=== PATIENT | female | born 1945 | race Caucasian/White ===

== ENCOUNTER 2021-02-28 07:14 | Inpatient (IN) | payer MEDICARE, BC ==
[~2021-02-28] VITALS: Ht 160 cm; Wt 96.1 kg
--- NOTE | ~2021-02-28 | PROC ---
[address] [address] PROCEDURE REPORT Name: HARIKA WINTER Room: [address] IN M.R.#: [id number] Admission: 02/28/21 Attend Phys: Clary Harmon Discharge: Date of : 43 Report #: [id number] THIS REPORT FOR: cc: Baldev Doshi MD, Anthony MD [facility],Medical Records Staff ~ For GI report, please see the Provation report in Perceptive 7 content. By: 0653Medical Records Staff ECTOR /SHANNA
[~2021-02-28 07:14] MED LIST: ALPHAGAN P10 ML OP; ALTACE10 MG PO; BENADRYL25 MG PO; BENTYL 20 MG TA20 M1 PO; BENTYL20 MG PO; CELEXA 10 MG TA10 M1 PO; CELEXA20 MG PO; CLONAZEPAM 0.50.5 M1 PO; COUMADIN 2 MG TA2 M1 PO; COUMADIN 4 MG TA4 M1 PO; EPIPEN JR0.15 MG/01 IM; ESTRACE2 M3 PO; ESTRADIOL 1 MG T1 M1 PO; FENOFIBRATE160 MG PO; KLOR-CON 1010 MEQ PO; LASIX 20 MG TAB20 MG PO; METOPROLOL SUCC50 MG PO; PERPHEN-AMITRI1 EAC3 PO; PREDNISONE 10 M10 MG PO; RAMIPRIL10 MG PO; SIMBRINZA 1%-0.28 ML OP; SYMBICORT80 MCG/4.1 INH; VENTOLIN HFA 1818 GM INH; WELLBUTRIN 100100 MG PO; ZOCOR20 MG PO; [UNRECOGNIZED DRUG - OTHER]
[2021-02-28 07:15] VITALS: BP 114/54
[2021-02-28 08:01] LABS: ABSOLUTE LYMPHOCYTES 0.1 thou/uL (0.8-5.3); ABSOLUTE MONOCYTES 0.2 thou/uL (0.0-1.2); ABSOLUTE NEUTROPHILS 19.9 thou/uL (1.6-8.1); BASOPHILS 0.2 %; EOSINOPHILS 0.2 %; HEMATOCRIT 39.5 % (37.0-47.0); HEMOGLOBIN 12.5 gm/dL (12.0-15.0); LYMPHOCYTES 0.6 %; MCH 25.7 pg (26.0-34.0); MCHC 31.5 g/dL (28.0-37.0); MCV 81.3 fL (80.0-100.0); MPV 7.9 fl. (7.2-11.1); NUCLEATED RBCS 0 /100WBC; PLATELET COUNT* 468 thou/uL (150-400); RBC 4.85 mil/uL (4.20-5.00); RDW-CV 16.9 % (10.5-14.5); WBC 20.4 thou/uL (4.0-11.0)
[2021-02-28 08:07] LABS: CALCIUM 8.8 mg/dL (8.5-10.1); CREATININE 2.5 mg/dL (0.6-1.3); POTASSIUM 4.7 mmol/L (3.5-5.1)
[2021-02-28 08:18] LABS: ALBUMIN 2.7 g/dL (3.4-5.0); MAGNESIUM 1.8 mg/dL (1.8-2.4); TOTAL BILIRUBIN 0.7 mg/dL (<0.1-1.0); TOTAL PROTEIN 6.8 g/dL (6.4-8.2)
--- NOTE | 2021-02-28 08:26 | NUR ---
RN PUSHED APPROXIMATELY 10MG OF CARDIZEM WHEN BP RECYCLED, PT BLOOD PRESSURE SHOWED 72/39. BLOOD PRESSURE CUFF ADJUSTED WITH SIMILAR READINGS. PROVIDER NOTIFIED, RN DID NOT PUSH REMAINING DOSE OF CARDIZEM AND GTT NOT STARTED. PROVIDER TO PLACE ORDERS.
[2021-02-28 10:45] VITALS: BP 112/49
[2021-02-28 11:15] VITALS: BP 96/49
[2021-02-28] MEDS ORDERED: MIRAPEX0.125 MG PO (14:42)
[2021-02-28] MEDS ORDERED: NORVASC 2.5 MG2.5 M1 PO (15:51)
[2021-02-28] MEDS ORDERED: XARELTO20 MG PO (15:52)
--- NOTE | 2021-02-28 15:54 | EKG ---
[place] [address] ELECTROCARDIOGRAM REPORT Name: HARIKA WINTER Room: [address] IN M.R.#: [id number] Admission: 02/28/21 Attend Phys: Jeovany Baer Discharge: Date of : 43 Date of Service: 02/28/21719 Report #: [id number] THIS REPORT FOR: //name// [facility] ED Test Date: 2021-02-28 Test Time: 07:20:57 Pat Name: HARIKA WINTER Department: Room: [facility] Gender: F Specialty Sales Consultant: KIERRA : 1945 Requested By: Michael Gilbert Order Number: [id number] MD: Adair Doyle Measurements Intervals [place] Rate: 147 P: MA: QRS: 95 QRSD: 132 T: -10 QT: 315 QTc: 493 Interpretive Statements Atrial fibrillation with a rapid ventricular response Right bundle branch block Compared to ECG 03/15/2016 23:08:56 Sinus rhythm no longer present Electronically Signed On 02-28-2021 15:54:22 CDT by Adair Doyle [email or web address] <ELECTRONICALLY SIGNED> By: Adair Doyle MD, [facility] 02/28/21 1554 9 9 Adair Doyle MD, [facility] /EPI
[2021-02-28 16:00] VITALS: BP 107/45
--- NOTE | 2021-02-28 17:56 | NUR ---
PT ADMITTED TO ROOM 209 VIA CART FROM ED AT APPROXIMATELY 1100. REPORT RECEIVED FROM SUELLEN DE LA CRUZ. PT ORIENTED TO ROOM AND CALL LIGHT. ADMISSION ASSESSMENT AND HISTORY CHARTED. PT A&0X4, DENIES ANY PAIN. TRACING AFIB ON THE EMR TRAINER. RATE IN THE 110'S-120'S. CARDIOLOGY CONSULT IN PLACE. ORDERS RECEIVED FOR IV DIGOXIN-REFER TO EMAR. PT ON 4L NC SAT MID 90'S. DENIES ANY SHORTNESS OF BREATH AT REST. PT UP WITH 1-2 ASSIST-WEAKNESS NOTED. PT SCREENED POSITIVE FOR SEPSIS. DR HARE NOTIFIED. NO NEW ORDERS RECEIVED. IVF. PT HAD MULTIPLE SEMI FORMED STOOLS VIA BEDPAN THIS SHIFT.BOTTOM NOTED TO BE RED AND EXCORIATED. REDNESS NOTED UNDER BREASTS AND IN GROIN. PICTURES TAKEN AND PLACED IN CHART. HOME MEDICATIONS RECONCILED. DR HARE NOTIFIED-AWIATING MEDS TO BE RESTARTED AT THIS TIME. MEDS PER AUG. CALL LIGHT WITHIN REACH. HOURLY ROUNDING OBSERVED. BED IN LOW POSITION. WILL CONTINUE PLAN OF CARE.
[2021-02-28 20:00] VITALS: BP 123/58
--- NOTE | 2021-02-28 20:00 | NUR ---
RECEIVED REPORT AND ASSUMED CARE OF PT, ASSESSMENT COMPLETED. PT SITTING UPON SIDE OF BED. VERY ANXIOUS OVER EVERY THING. REASSURANCE GIVEN CONCERNING BREATHING, ACTIVITY, MEDS AND GENERAL CARE. O2 ON AT 4L/NC. TELEMETRY ON SHOWING A-FIB WITH RATE INTO 130'S WITH ANXIETY. WILL CONT TO MONITOR NEEDED.
[2021-03-01] VITALS: BP 124/52
[2021-03-01 04:00] VITALS: BP 129/72
--- NOTE | 2021-03-01 06:30 | NUR ---
PT VERY ANXIOUS AND RESTLESS ALL NIGHT. WEARING BIPAP BUT SEVERAL TIMES GOING FROM NC TO BIPAP, EDUCATED ON NEED TO KEEP BIPAP ON. UP TO BSC WITH MIN ASSIST. TELEMETRY CONT TO SHOW A-FIB WITH RATE INTO 100'S.
[2021-03-01 07:45] VITALS: BP 140/62
[2021-03-01 07:47] LABS: CALCIUM 8.1 mg/dL (8.5-10.1); CREATININE 1.6 mg/dL (0.6-1.3); POTASSIUM 4.4 mmol/L (3.5-5.1)
--- NOTE | 2021-03-01 09:23 | NUR ---
ASSUMED CARE OF PT AT 0730. PT A&0X4, DENIES ANY PAIN AT THIS TIME. TRACING AFIB ON THE CIVIL ENGINEER IN TRAINING. RATE IN THE LOW 100'S. CARDIOLOGY HERE TO SEE PT THIS AM-ORDERS RECEIVED FOR DIGOXIN IVP X 1-REFER TO EMAR. PT ON 4L NC SAT MID 90'S. BIPAP PRN AND AT NOC. PT UP WITH 1 ASSIST-WEAKNESS NOTED. PT GOAL FOR TODAY IS MAINTAIN HEART RATE BELOW 100, INCREASE ACTIVITY AND IV STEROIDS AND ANTIBIOTICS. AM ASSESSMENT CHARTED. MEDICATIONS PER AUG. PT REPOSITIONS SELF WITH REMINDERS. HOURLY ROUNDING OBSERVED. BED IN LOW POSITION. CALL LIGHT WITHIN REACH. WILL CONTINUE PLAN OF CARE.
[2021-03-01 12:00] VITALS: BP 151/63
--- NOTE | 2021-03-01 15:09 | NUR ---
Pt is A&O. Resides at home with . Independent. Pt has a walker at home that she can use for mobility. Pt wears home o2 at 3L. No hx of HH or SNF. Goal is home at dc, Pt may benefit from HH. Cards following for afib. Pt currently on 4L, continue to wean, bipap PRN. PT to eval
--- NOTE | 2021-03-01 15:53 | 2DMMODE ---
[place] [address] 2 D/M-MODE ECHOCARDIOGRAM Name: HARIKA WINTER Room: [address] IN [facility]#: [id number] Admission: 02/28/21 Attend Phys: Jeovany Baer Discharge: Date of : 43 Date of Service: 03/01/21 1552 Report #: [id number] THIS REPORT FOR: cc: Baldev Doshi MD, Anthony MD Liston, Michael J. MD [facility] ~ ADDENDUM APPROVED REPORT Study performed: 03/01/2021 14:45:26 EXAM: Comprehensive 2D, Doppler, and color-flow Echocardiogram Patient Location: In-Patient Room #: [facility] Status: routine BSA: 1.93 HR: 100 bpm BP: 151/63 mmHg Rhythm: NSR Other Information Study Quality: Good Indications COPD Atrial Fibrillation Elevated Troponin 2D Dimensions IVSd: 10.64 (7-11mm) LVOT Diam: 19.74 (18-24mm) LVDd: 46.20 mm PWd: 11.28 (7-11mm) Ascending Ao: 29.03 (22-36mm) LVDs: 32.15 (25-40mm) Aortic Root: 30.32 mm Volumes Left Atrial Volume (Systole) LA ESV Index: 28.40 mL/m2 Aortic Valve AoV Peak Salvador.: 1.39 m/s AO Peak Gr.: 7.77 mmHg LVOT Max P.59 mmHg AO Mean Gr.: 4.31 mmHg LVOT Mean P.07 mmHg LVOT Max V: 1.07 m/s AO V2 VTI: 25.19 cm LVOT Mean V: 0.65 m/[place] [address] 2 D/M-MODE ECHOCARDIOGRAM Name: HARIKA WINTER Room: [address] IN ..#: [id number] Admission: 02/28/21 Attend Phys: Jeovany Baer Discharge: Date of : 43 Date of Service: 03/01/21 1552 Report #: [id number] MURTAZA (VTI): 2.43 cm2 LVOT V1 VTI: 20.03 cm TDI Medial E' Salvador.: 0.12 m/s Lateral E' Salvador.: 0.12 m/s Pulmonary Valve PV Peak Salvador.: 1.24 m/s PV Peak Gr.: 6.19 mmHg Tricuspid Valve RAP Estimate: 5.00 mmHg TR Peak Gr.: 30.07 mmHg RVSP: 35.00 mmHg PA Pressure: 35.00 mmHg Left Ventricle The left ventricle is normal size. There is normal LV segmental wall motion. There is normal left ventricular wall thickness. Left ventricular systolic function is normal. LVEF is 60-65%. This study is not technically sufficient to allow evaluation of the LV diastolic function due to atrial fibrillation. Right Ventricle The right ventricle is normal size. The right ventricular systolic function is normal. Atria Left atrium is mildly dilated. Right atrium is mildly dilated. Aortic Valve The aortic valve is normal in structure. No aortic regurgitation is present. There is no aortic valvular stenosis. Mitral Valve The mitral valve is normal in structure. Trace mitral regurgitation. No evidence of mitral valve stenosis. Tricuspid Valve The tricuspid valve is normal in structure. Mild tricuspid regurgitation. Mild pulmonary hypertension. The RVSP is 35-40 mmHg. Pulmonic Valve The pulmonary valve is normal in structure. There is no pulmonic [place] [address] 2 D/M-MODE ECHOCARDIOGRAM Name: HARIKA WINTER Room: [address] IN [facility]#: [id number] Admission: 02/28/21 Attend Phys: Jeovany Baer Discharge: Date of : 43 Date of Service: 03/01/21 1552 Report #: [id number] Great Vessels The aortic root is normal in size. IVC is normal in size and collapses >50% with inspiration. Pericardium There is no pericardial effusion. <Conclusion> The left ventricle is normal size. There is normal left ventricular wall thickness. Left ventricular systolic function is normal. LVEF is 60-65%. Trace mitral regurgitation. Mild tricuspid regurgitation. Mild pulmonary hypertension. The RVSP is 35-40 mmHg. IVC is normal in size and collapses >50% with inspiration. Left atrium is mildly dilated. Right atrium is mildly dilated. <ELECTRONICALLY SIGNED> By: Luis Watt MD, FACC 03/01/21 1552 1552 155 Luis Watt MD, FACC /INF
[2021-03-01 16:00] VITALS: BP 147/77
[2021-03-01 20:00] VITALS: BP 142/74
[2021-03-02] VITALS: BP 155/77
[2021-03-02 04:00] VITALS: BP 154/71
[2021-03-02 08:23] LABS: HEMATOCRIT 34.3 % (37.0-47.0); HEMOGLOBIN 10.7 gm/dL (12.0-15.0); MCH 25.6 pg (26.0-34.0); MCHC 31.2 g/dL (28.0-37.0); MCV 81.8 fL (80.0-100.0); RBC 4.2 mil/uL (4.20-5.00); RDW-CV 17.2 % (10.5-14.5); WBC 14.1 thou/uL (4.0-11.0)
[2021-03-02 08:37] VITALS: BP 172/68
[2021-03-02 09:21] LABS: CALCIUM 8.6 mg/dL (8.5-10.1); CREATININE 1.4 mg/dL (0.6-1.3); POTASSIUM 4.8 mmol/L (3.5-5.1)
[2021-03-02 12:03] VITALS: BP 116/65
--- NOTE | 2021-03-02 14:08 | NUR ---
Anticipate dc tomorrow. On 3L. PT to eval. Goal is home at dc. If Pt agrees to and does not have a preference, fax referral to [facility] [phone]
[2021-03-02 17:29] VITALS: BP 157/81
--- NOTE | 2021-03-02 18:08 | NUR ---
NO ACUTE EVENTS THIS SHIFT. PLANS FOR HOME HEALTH ON D/C FOR PHYSICAL THERAPY
[2021-03-02 20:00] VITALS: BP 144/82
[2021-03-03] VITALS: BP 156/95
[2021-03-03 04:00] VITALS: BP 145/79
[2021-03-03 05:25] LABS: CALCIUM 8.1 mg/dL (8.5-10.1); CREATININE 1.3 mg/dL (0.6-1.3); POTASSIUM 4.6 mmol/L (3.5-5.1)
[2021-03-03 05:36] LABS: HEMATOCRIT 33.6 % (37.0-47.0); HEMOGLOBIN 10.3 gm/dL (12.0-15.0); MCH 24.9 pg (26.0-34.0); MCHC 30.7 g/dL (28.0-37.0); MCV 81.2 fL (80.0-100.0); RBC 4.14 mil/uL (4.20-5.00); RDW-CV 17.1 % (10.5-14.5); WBC 12.3 thou/uL (4.0-11.0)
[2021-03-03 07:46] VITALS: BP 156/73
[2021-03-03 12:00] VITALS: BP 159/70
[2021-03-03 16:00] VITALS: BP 159/74
--- NOTE | 2021-03-03 18:08 | NUR ---
PT UP TO WALK TO THE BATHROOM WITH WALKER AND GAIT BELT. VSS AFEBRILE. WILL CONTINUE TO MONITOR PLAN OF CARE.
[2021-03-03 20:00] VITALS: BP 154/66
[2021-03-03 20:57] LABS: URINE BILIRUBIN NEGATIVE (Negative); URINE BLOOD NEGATIVE (Negative); URINE CLARITY CLEAR; URINE COLOR STRAW; URINE GLUCOSE-RANDOM TRACE (Negative); URINE KETONES NEGATIVE (Negative); URINE LEUKOCYTES-REFLEX NEGATIVE (Negative); URINE NITRITE-REFLEX NEGATIVE (Negative); URINE PROTEIN NEGATIVE (Negative); URINE UROBILINOGEN 0.2 E.U./dl (0.2-1.0)
[2021-03-04 01:47] VITALS: BP 106/70
[2021-03-04 05:10] VITALS: BP 132/70
[2021-03-04 12:00] VITALS: BP 111/55
[2021-03-04 16:00] VITALS: BP 118/55
--- NOTE | 2021-03-04 18:41 | NUR ---
PATIENT RESTING IN BED. 98% ON 3L OXYGEN, NASAL CANNULA. STOOL FOR C-DIFF PENDING. X1 ASSIST TO BEDSIDE COMMODE. ALERT AND ORIENTED X4. BED IN LOW/LOCKED POSITION. CALL LIGHT WITHIN REACH. ALL QUESTIONS AND CONCERNS ADDRESSED.
[2021-03-05 01:43] VITALS: BP 117/53
[2021-03-05 06:53] VITALS: BP 130/62
[2021-03-05 12:00] VITALS: BP 113/51
--- NOTE | 2021-03-05 14:39 | NUR ---
Pt on 3L. PT to see. Hemo for positive stool. GI following, plan scope tomorrow. CM to discuss SNF with PT. Anticipate dc in a few days.
[2021-03-05 16:00] VITALS: BP 119/71
[2021-03-05 20:55] VITALS: BP 150/77
[2021-03-06] VITALS: BP 123/51
[2021-03-06 04:00] VITALS: BP 162/69
[2021-03-06 11:12] VITALS: BP 137/46
[2021-03-06 15:16] LABS: HEMATOCRIT 24.9 % (37.0-47.0)
--- NOTE | 2021-03-06 17:09 | NUR ---
CM WENT TO DISCUSS SNF OPTION W/PT, BUT PT WAS OUT OF ROOM AT PROCEDURE.
--- NOTE | 2021-03-06 18:04 | NUR ---
PT RETURNED FROM PACU FOR EGD AND COLONOSCOPY. PT RETURNED PER BED AND GOT UP TO VOID. VSS AFEBRILE. PT EATING FULL LIQUID DIET AT THIS TIME. WILL POSSIBLY DISCHARGE IN THE AM. WILL CONTINUE TO MONITOR PLAN OF CARE.
[2021-03-06 21:27] VITALS: BP 122/44
[2021-03-06 23:34] VITALS: BP 111/52
[2021-03-07 04:26] VITALS: BP 120/60
[2021-03-07 05:31] LABS: HEMATOCRIT 22.7 % (37.0-47.0); HEMOGLOBIN 7.2 gm/dL (12.0-15.0); MCH 25.9 pg (26.0-34.0); MCHC 31.8 g/dL (28.0-37.0); MCV 81.4 fL (80.0-100.0); RBC 2.79 mil/uL (4.20-5.00); RDW-CV 16.7 % (10.5-14.5); WBC 12.2 thou/uL (4.0-11.0)
[2021-03-07 06:00] LABS: ALBUMIN 2.3 g/dL (3.4-5.0); ALKALINE PHOSPHATASE 43 U/L (46-116); ANION GAP < 0 mmol/L (7-16); BUN 30 mg/dL (7-18); CALCIUM 7.9 mg/dL (8.5-10.1); CHLORIDE 103 mmol/L (98-107); CO2 38 mmol/L (21-32); CREATININE 1.1 mg/dL (0.6-1.3); GLUCOSE 205 mg/dL (70-99); MAGNESIUM 2.1 mg/dL (1.8-2.4); POTASSIUM 4.2 mmol/L (3.5-5.1); SGOT 30 U/L (15-37); SGPT 44 U/L (30-65); SODIUM 140 mmol/L (136-145); TOTAL BILIRUBIN 0.7 mg/dL (<0.1-1.0); TOTAL PROTEIN 5.3 g/dL (6.4-8.2)
[2021-03-07 08:15] VITALS: BP 150/45
[2021-03-07 12:00] VITALS: BP 117/50
--- NOTE | 2021-03-07 14:08 | NUR ---
CM spoke with Pt regarding SNF at dc, Pt in agreement. [facility] per Pt's request. Pt continues to have GI issues, hbg down today. Anticipate dc in a few days.
--- NOTE | 2021-03-07 15:41 | CON ---
[address] [address] CONSULTATION Name: HARIKA WINTER Room: [address] IN M.R.#: [id number] Admission: 02/28/21 Attend Phys: Clary Harmon Discharge: Date of : 43 Report #: [id number] THIS REPORT FOR: cc: Baldev Doshi MD,Alexsander Soto MD, MD ~ cc: Baldev Doshi MD DATE OF CONSULTATION: 03/05/2021 Please note at the time of this dictation, the patient was seen and physically examined by myself. REASON FOR CONSULTATION: Anemia. HISTORY OF PRESENT ILLNESS: This is a 75-year-old female presented to the Emergency Room with increasing weakness, feeling run down, likely related to a COPD exacerbation. She states she has been feeling very weak and was unable to get out of the bed. She was on her 5th day of a steroid taper and oral antibiotics from her PCP and just continued to worsen despite this treatment. 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 The patient states for the last couple of weeks, she has been having some diarrhea up to about 5 times a day. She states she has been under a lot of stress as she has been taking care of her due to his issues with his back. She also states she has not been feeling like eating. She denies any acid reflux, nausea, vomiting or any abdominal pain. She states she gets hungry, but when they bring food, she just does not feel like eating. The patient also states that she has not noticed any bright red blood or any melena in her stools. She states normally she will just go once or maybe twice a day prior to these past 2 weeks. The patient states she did have a colonoscopy done about 5 years ago at [facility]. She states everything was normal. We will obtain those results. ALLERGIES: PENICILLIN. MEDICATIONS FROM HOME: Include clonazepam, fenofibrate, Zocor, Xarelto, Norvasc, Mirapex, Benadryl, EpiPen, prednisone taper, dicyclomine, Symbicort, Simbrinza eyedrops, potassium, Lasix, Estrace, metoprolol, ramipril, Celexa, Ventolin and Zocor. PAST MEDICAL HISTORY: Hypertension, hyperlipidemia, glaucoma, atrial fib, restless leg syndrome, hypoestrogenism, history of panic attacks, COPD, requiring oxygen. PAST SURGICAL HISTORY: D and C, hysterectomy, right eye and gum surgery, [place] [address] CONSULTATION Name: HARIKA WINTER Room: [address] IN ..#: [id number] Admission: 02/28/21 Attend Phys: Clary Harmon Discharge: Date of : 43 Report #: [id number] ulnar nerve decompression. FAMILY HISTORY: Negative for any GI or female cancers. SOCIAL HISTORY: She lives at home and cares for her . She denies any alcohol. She does continue to smoke and denies any illegal drug use. REVIEW OF SYSTEMS: A 12-point review of systems essentially negative except what is mentioned in the HPI. PHYSICAL EXAMINATION: VITAL SIGNS: Temperature 36.2, pulse 87, respirations 20, blood pressure 130/62. HEART: Regular rate and rhythm. LUNGS: Diminished with a faint wheeze noted. ABDOMEN: Soft, positive bowel sounds in all 4 quadrants with no masses or tenderness noted. LABORATORY DATA: Hemoglobin on admission was 12.5 with a white count of 20.4. She is down to 10.3 with a white count of 12.3 and platelets are 340. BUN 33-34, creatinine 1.3 with a GFR of 40. Her iron is 27, TIBC 242, percentage sat is 11 and ferritin is 202. Chest x-ray was normal. IMPRESSION: 1. Anemia. 2. Loss of appetite. 3. Diarrhea last 2 weeks. Recent antibiotic use. 4. Anticoagulant therapy, atrial fibrillation, Xarelto. 5. Leukocytosis. 6. Chronic obstructive pulmonary disease exacerbation, O2 at 3 liters. 7. Fatigue. 8. Chronic kidney disease, stage 3. PLAN: 1. Okay from Cardiology to hold her Xarelto. 2. Plan for EGD and colonoscopy tomorrow regarding her anemia. 3. Obtain records from [facility] of her last colonoscopy. 4. Further recommendations to be made once the procedure [place] [address] CONSULTATION Name: HARIKA WINTER Room: [address] IN [facility].#: [id number] Admission: 02/28/21 Attend Phys: Clary Harmon Discharge: Date of : 43 Report #: [id number] Thank you for allowing us to participate in this patient's care. Please do not hesitate to call with any questions regarding this consult. <ELECTRONICALLY SIGNED> By: Alexsander Morales MD 03/07/21 1541 0927 [id number] Morales MD /nt
[2021-03-07 16:00] VITALS: BP 125/47
[2021-03-07 19:45] VITALS: BP 109/51
[2021-03-08] VITALS (7 sets, daily range): BP systolic 101–138; BP diastolic 45–74
--- NOTE | 2021-03-08 04:25 | NUR ---
PT A&O X 4. ON 3L BY NC. PT REFUSED BIPAP. MEDS GIVEN ORDERED. UP TO BSC WITH SBA. PT SLEPT MOST OF THE NIGHT. CALL LIGHT WITHIN REACH. WILL CONTINUE TO MONITOR.
[2021-03-08 04:53] LABS: ALBUMIN 2.2 g/dL (3.4-5.0); CALCIUM 8.2 mg/dL (8.5-10.1); CREATININE 1.3 mg/dL (0.6-1.3); POTASSIUM 3.9 mmol/L (3.5-5.1); TOTAL BILIRUBIN 0.5 mg/dL (<0.1-1.0); TOTAL PROTEIN 5.1 g/dL (6.4-8.2)
[2021-03-08 05:37] LABS: HEMATOCRIT 21.5 % (37.0-47.0); MCHC 31.7 g/dL (28.0-37.0); MCV 82.3 fL (80.0-100.0); MPV 8.1 fl. (7.2-11.1); RBC 2.61 mil/uL (4.20-5.00); RDW-CV 16.6 % (10.5-14.5); WBC 15.6 thou/uL (4.0-11.0)
[2021-03-08 05:51] LABS: HEMOGLOBIN 6.8 gm/dL (12.0-15.0)
--- NOTE | 2021-03-08 08:00 | NUR ---
AM ASSESSMENT COMPLETE, DEFER TO COMPUTER CHARTING. PUBLIC SAFETY POLICE TRACKING AFIB. 02 ON 3L PER NC. SOA NOTED WITH ACTIVITY. DENIES PAIN, DIZZINESS OR ANY DISCOMFORT AT THIS TIME. EDUCATED ON ORDERS FOR BLOOD TRANSFUSION AND CONSENT, VERBALIZED UNDERSTANDING. CONSENT SIGNED AND PLACED ON CHART. HOB ELEVATED, CALL LIGHT WITHIN REACH. WILL MONITOR.
[2021-03-08 12:27] LABS: HEMOGLOBIN 8.9 gm/dL (12.0-15.0)
--- NOTE | 2021-03-08 14:13 | NUR ---
Anticipate dc in a few days. [facility] can accept pt for skilled at dc. GI following. Transfused today. Stablize hbg. Possibly here through weekend.
--- NOTE | 2021-03-08 16:10 | NUR ---
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 02 REMAINS ON 3L PER NC. NO COMPLAINTS OF PAIN, DIZZINESS TO NURSING. RECEIVED 1 UNIT OF PRBC, TOLERTING DIET. NO VOICED COMPLAINTS OR CONCNERS AT THIS TIME. HOB ELEVATED, CALL LIGHT WITHIN REACH. WILL CONITNUE WITH PLAN OF CARE.
--- NOTE | 2021-03-08 20:00 | NUR ---
RECEIVED REPORT AND ASSUMED CARE OF PT, ASSESSMENT COMPLETED. PT ANXIOUS BUT COOPERATIVE. ASKING ABOUT HER XRAY IF SHE HAD PNEUMONIA, REASSURED HER THAT RESULTS SAID NO. ASKING ABOUT PLANS, DISCUSSED SNF AT DISCHARGE. O2 ON AT 3L/NC, THIS IS HER BASELINE AT HOME. TELEMETRY ON SHOWING A-FIB. WILL CONT TO MONITOR AND ASSIST NEEDED.
[2021-03-09] VITALS (7 sets, daily range): BP systolic 110–147; BP diastolic 52–76
[2021-03-09 04:02] LABS: HEMATOCRIT 27.1 % (37.0-47.0); HEMOGLOBIN 8.8 gm/dL (12.0-15.0); MCH 27.5 pg (26.0-34.0); MCHC 32.6 g/dL (28.0-37.0); MCV 84.2 fL (80.0-100.0); MPV 7.8 fl. (7.2-11.1); RBC 3.22 mil/uL (4.20-5.00); RDW-CV 18.3 % (10.5-14.5); WBC 14.2 thou/uL (4.0-11.0)
[2021-03-09 04:31] LABS: ALBUMIN 2.5 g/dL (3.4-5.0); ALKALINE PHOSPHATASE 42 U/L (46-116); ANION GAP < 0 mmol/L (7-16); BUN 29 mg/dL (7-18); CALCIUM 8.1 mg/dL (8.5-10.1); CHLORIDE 104 mmol/L (98-107); CO2 37 mmol/L (21-32); CREATININE 1.3 mg/dL (0.6-1.3); GLUCOSE 116 mg/dL (70-99); POTASSIUM 3.9 mmol/L (3.5-5.1); SGOT 23 U/L (15-37); SGPT 40 U/L (30-65); SODIUM 140 mmol/L (136-145); TOTAL BILIRUBIN 0.5 mg/dL (<0.1-1.0); TOTAL PROTEIN 5.3 g/dL (6.4-8.2)
--- NOTE | 2021-03-09 06:19 | NUR ---
SLEPT WELL. ASSISTED TO SBC, VOIDING WITHOUT DIFFICULTY. HARRISON BIPAP APPROX 4 HR TONIGHT OTHERWISE ON 3L/NC. TELEMETRY CONT TO SHOW A-FIB. NO CHANGE IN ASSESSMENT. HS GOALS OF REST AND SAFETY ACHIEVED.
--- NOTE | 2021-03-09 11:40 | NUR ---
Nutrition: Assess for LOS. Pt noted with erosive gasropathy, HH, gastric ulcers per EGD 03/07. Hx COPD, a-fib, PNA, HTN, HLD. Noted with need for pRBC, acute blood loss anemia noted. Rx: steroids, lasix, Fe sucrose. Labs reviewed. Diet has been NPO-CLD-FLD, now on soft/fiber restricted diet x 2 days. Has been tolerating well. No intakes reported in [facility]. POC is likely to d/c to SNF when medically stable. BMI 37, obese II range, wts have beens table since admit. Pt could benefit from gradual weight loss. Low nutrition risk.
--- NOTE | 2021-03-09 12:54 | NUR ---
PLAN OF CARE: PHYSICIAN INFORMS OF PLAN FOR THE PT TO REMAIN INPT THROUGH THE WEEKEND. PLAN FOR PT TO HAVE PICC LINE PLACED TODAY. [facility] AT D/C. CM WILL REMAIN AVAILABLE TO ASSIST AND FOLLOW NEEDED.
--- NOTE | 2021-03-09 13:45 | NUR ---
The patieint is alert. AFIB on the monitor. PICC in place to right upper arm. Able to make needs known. Transfers with one assist. Denies SOB or CP.
--- NOTE | 2021-03-09 15:08 | PATH ---
[address] [address] PATHOLOGY RPT PROCEDURE Name: GINNY ELENALUL Akers Room: [address] IN M.R.#: [id number] Admission: 02/28/21 Date of : 43 Discharge: Report #: [id number] Path Case #: [id number] [facility] Accession Number: [id number] . 01 Material submitted: . PART A: stomach - BIOPSY ANTRAL EROSIONS PART B: stomach - BIOPSY ULCER BODY OF STOMACH PART C: sigmoid colon - PATCHY ERYTHEMA IN SIGMOID COLON, SUSPICIOUS FOR COLONIC ISCHEMIA . 01 Clinical history: . EGD AND COLONOSCOPY COPD, A FIB RVR, ELEVATED TROPONIN . 02 Diagnosis: A. 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 . B. Biopsy ulcer body of stomach: - Mild nonspecific chronic gastritis, negative for Helicobacter pylori organisms, granulomas and dysplasia. . C. Patchy erythema in sigmoid colon: - Active colitis with ulceration typical of ischemic colitis, negative for granulomas and dysplasia. See comment. (BRANDY:marquise; 03/08/2021) [facility] 03/08/2021 1339 Local . 02 Comment: The sigmoid colon biopsy (C) shows benign colonic mucosa with prominent acute inflammation and evidence of ulceration and focal preservation of deepest aspects of the crypts. There is no significant crypt distortion or basal lymphoplasmacytosis to elevate suspicion of inflammatory bowel disease. (BRANDY:marquise; 03/08/2021) . Special stains: H. pylori immunos on A and B . 02 Electronically signed: . Nelson Wagner MD, Pathologist NPI- [id number] . 01 Gross description: . . A. The specimen is submitted in formalin, labeled "Melanie Elena, biopsy antral erosions". Received is a single segment [place] [address] PATHOLOGY RPT PROCEDURE Name: MELANIE ELENA Room: [address] IN [facility]#: [id number] Admission: 02/28/21 Date of : 43 Discharge: Report #: [id number] Path Case #: [id number] measuring 0.5 cm in maximum dimension. The specimen is submitted entirely in cassette A1. . B. The specimen is submitted in formalin, labeled "Melanie Elena, biopsy ulcer body of stomach". Received are 2 segments of pale moreland tissue ranging in size from 0.3 to 0.5 cm in maximum dimensions. The specimen is submitted entirely in cassette B1. . C. The specimen is submitted in formalin, labeled "Melanie Elena, patchy erythema in sigmoid colon". Received are 4 minute fragments of pale moreland tissue measuring 0.4 x 0.3 x 0.1 cm in aggregate dimensions. The specimen is submitted entirely in cassette C1. Due to the minute nature of the specimen, it may not survive processing. ([facility]; 03/07/2021) NRI/NRI 03/08/2021 1334 Local . 02 Pathologist provided ICD-10: K29.50, K52.9, K63.3 . 02 CPT . 277174, 001825, 830963, [id number] Specimen Comment: A courtesy copy of this report has been sent to [phone], [phone] Specimen Comment: [id number], Specimen Comment: Report sent to , DR RENDON / DR HARE Specimen Comment: A duplicate report has been generated due to demographic updates. Performed at: 01 [facility] [address], [place], [place] [id number] MD Mo Aguilar MD Phone: [phone] Performed at: 02 [facility] [place] [address] [facility] [place], [place] [id number] MD Nelson Wagner MD Phone: [phone]
--- NOTE | 2021-03-10 02:06 | NUR ---
PT ALERT ORIENTED. PT STATING SHE IS SOA ALTHOUGH SHE LOOKED LIKE SHE WAS NOT IN DISTRESS. O2 SAT 97% ON 2 LITERS. REASSURANCE PROVIDED. PT TEACHING WITH STAFF RE WEARING BIPAP. MELATONIN GIVEN HS FOR SLEEP. PT RESTING QUIETLY ON BIPAP. DIRECTOR OF ENVIRONMENTAL SERVICES TRACING AFIB.
[2021-03-10 04:00] VITALS: BP 149/67
[2021-03-10 04:14] LABS: ABSOLUTE LYMPHOCYTES 1.4 thou/uL (0.8-5.3); ABSOLUTE MONOCYTES 1.1 thou/uL (0.0-1.2); ABSOLUTE NEUTROPHILS 12.9 thou/uL (1.6-8.1); BASOPHILS 0.2 %; HEMATOCRIT 27.1 % (37.0-47.0); HEMOGLOBIN 8.9 gm/dL (12.0-15.0); LYMPHOCYTES 8.9 %; MCH 27.7 pg (26.0-34.0); MCHC 32.7 g/dL (28.0-37.0); MCV 84.7 fL (80.0-100.0); MPV 7.7 fl. (7.2-11.1); NUCLEATED RBCS 0 /100WBC; PLATELET COUNT* 289 thou/uL (150-400); POLYS 83.9 %; RDW-CV 19.4 % (10.5-14.5); WBC 15.3 thou/uL (4.0-11.0)
[2021-03-10 04:25] LABS: CALCIUM 8.4 mg/dL (8.5-10.1); CREATININE 1.2 mg/dL (0.6-1.3); POTASSIUM 4.5 mmol/L (3.5-5.1)
[2021-03-10 07:47] VITALS: BP 141/72
--- NOTE | 2021-03-10 09:46 | NUR ---
ASSUMED CARE OF PT THIS AM AROUND 0715- CONSTRUCTION REP IN PLACE ORDERED, TRACING A.FIB WITH BBB- UPON ASSESSMENT PT NOTED TO BE RESTING IN BED, WATCHING TV- PT A&O X4- CONT OF B/B- UP SBA TO BED SIDE COMMODE- DIMINISHED LUNG SOUNDS RUL/LOWER BASES- VSS, O2 SAT 99% ON 3L VIA NC- ABD SOFT/OBESE/NON-TENDER, BS X4 QUADS- LAST BM REPORTED 03/09/21-RIGHT UE PICC NOTED C/D/I, IV IRON GIVEN THIS AM PRESCRIBED- SET UP ASSIST WITH MEALS, GOOD PO INTAKE NOTED- BS MONITORED ORDERED- IV LASIX 40MG X1 GIVEN THIS AM PRESCRIBED- +1 BLE EDEMA NOTED- PT DENIES ANY C/O PAIN- CALL LIGHT AND PERSONAL BELONGINGS WITH IN REACH- ALL NEEDS MET AT THIS TIME
[2021-03-10 11:30] VITALS: BP 141/64
[2021-03-10 16:00] VITALS: BP 130/64
[2021-03-10 20:00] VITALS: BP 122/41
[2021-03-10 23:45] VITALS: BP 147/49
--- NOTE | 2021-03-11 01:42 | NUR ---
PT ALERT ORIENTED. UP TO BSC WITH ASSIST OF ONE. PT STATED THAT GETTING UP MADE HER DIZZY. 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 +2 LOWER EXT EDEMA.
[2021-03-11 04:46] VITALS: BP 140/86
[2021-03-11 07:37] VITALS: BP 136/48
--- NOTE | 2021-03-11 08:56 | NUR ---
ASSUMED CARE OF PT THIS AM AROUND 07- INSOLVENCY CONSULTANT IN PLACE ORDERED, TRACING A-FIB WITH BBB- UPON ASSESSMENT PT NOTED TO BE RESTING IN BED- PT A&O X4- CONT VS INCONT OF B/B- ASSIST X1 WITH TRANSFERS- UP TO BED SIDE RECLINER WITH BREAKFAST THIS AM, FAIR PO INTAKE NOTED- LC TO RIGHT UPPER LOBE, DIMINISHED IN OTHERS- DYSPENA NOTED ON EXERTION- VSS, O2 SAT 100% ON 3L VIA NC- ABD SOFT/OBESE/NON-TENDER, BS X4 QUADS- PT REPORTS LAST BM 03/10/21- RUE PICC NOTED C/D/I, IV IRON INFUSSING AT THIS TIME PRESCRIBED- +1 BLE EDEMA NOTED- PT DENIES ANY C/O PAIN- CALL LIGHT AND PERSONAL BELONGINGS WITH IN REACH- PT MAKES NEEDS KNOWN- ALL NEEDS MET AT THIS TIME
[2021-03-11 08:59] LABS: ABSOLUTE LYMPHOCYTES 1.6 thou/uL (0.8-5.3); ABSOLUTE MONOCYTES 0.9 thou/uL (0.0-1.2); ABSOLUTE NEUTROPHILS 10.1 thou/uL (1.6-8.1); BASOPHILS 0.3 %; EOSINOPHILS 0.3 %; HEMOGLOBIN 9.7 gm/dL (12.0-15.0); LYMPHOCYTES 12.9 %; MCH 27.1 pg (26.0-34.0); MCHC 31.3 g/dL (28.0-37.0); MCV 86.6 fL (80.0-100.0); MONOCYTES 6.7 %; MPV 7.7 fl. (7.2-11.1); NUCLEATED RBCS 0 /100WBC; PLATELET COUNT* 323 thou/uL (150-400); POLYS 79.8 %; RBC 3.58 mil/uL (4.20-5.00); RDW-CV 19.9 % (10.5-14.5); WBC 12.7 thou/uL (4.0-11.0)
[2021-03-11 09:15] LABS: ALBUMIN 2.6 g/dL (3.4-5.0); CALCIUM 8.5 mg/dL (8.5-10.1); CREATININE 1.3 mg/dL (0.6-1.3); TOTAL BILIRUBIN 0.6 mg/dL (<0.1-1.0); TOTAL PROTEIN 5.7 g/dL (6.4-8.2)
[2021-03-11 12:00] VITALS: BP 140/59
[2021-03-11 16:00] VITALS: BP 96/63
[2021-03-11 20:29] VITALS: BP 126/50
[2021-03-11 23:42] VITALS: BP 131/41
[2021-03-12 04:11] VITALS: BP 139/52
[2021-03-12 06:01] LABS: ABSOLUTE LYMPHOCYTES 1.3 thou/uL (0.8-5.3); ABSOLUTE MONOCYTES 0.7 thou/uL (0.0-1.2); ABSOLUTE NEUTROPHILS 8.1 thou/uL (1.6-8.1); BASOPHILS 0.3 %; EOSINOPHILS 0.5 %; HEMATOCRIT 28.1 % (37.0-47.0); MCHC 32.1 g/dL (28.0-37.0); MCV 87.5 fL (80.0-100.0); MONOCYTES 6.5 %; MPV 7.9 fl. (7.2-11.1); NUCLEATED RBCS 0 /100WBC; PLATELET COUNT* 258 thou/uL (150-400); POLYS 79.7 %; RBC 3.21 mil/uL (4.20-5.00); RDW-CV 21.3 % (10.5-14.5); WBC 10.2 thou/uL (4.0-11.0)
[2021-03-12 06:09] LABS: ALBUMIN 2.3 g/dL (3.4-5.0); CALCIUM 8.3 mg/dL (8.5-10.1); CREATININE 1.2 mg/dL (0.6-1.3); TOTAL BILIRUBIN 0.6 mg/dL (<0.1-1.0); TOTAL PROTEIN 5.2 g/dL (6.4-8.2)
--- NOTE | 2021-03-12 07:12 | NUR ---
PT IS ABLE TO COMMUNICATE HER NEEDS TO STAFF EFFECTIVELY. CURRENT PAIN MEDICATION REGIMEN HAS BEEN ADEQUATE FOR CONTROLLING HER PAIN UP TO THIS TIME. RT ARM PICC LINE PATENT UP TO THIS TIME. PT DID WEAR BIPAP LAST NIGHT WHILE SLEEPING FOR APPROXIMATELY 4 HOURS. POSSIBLE DISCHARGE TODAY.
[2021-03-12 08:01] VITALS: BP 135/51
--- NOTE | 2021-03-12 09:28 | NUR ---
ASSUMED CARE OF PT THIS AM AROUND 07- SOCIAL SERVICE LIAISON IN PLACE ORDERED, TRACING A-FIB/BBB- UPON ASSESSSMENT PT NOTED TO BE RESTING IN BED- PT A&O X4- CONT VS INCONTINENT OF B/B- ASSIST X1 WITH TRANSFERS- PATRICIA CLEAR, ALL OTHERS DIMINISHED- DYSPNEA NOTED ON EXERTION- VSS, O2 SAT 98% ON 3L VIA NC- ABD SOFT/OBESE/NON-TENDER, BS X4 QUADS- LAST BM REPORTED 03/11/21-RUE PICC NOTED C/D/I, IV IRON GIVEN THIS AM PRESCRIBED- SET UP ASSIST REQUIRED WITH MEALS, FAIR PO INTAKE NOTED- +1 BLE EDEMA NOTED, LEG ELEVATION IN PLACE- PT DENIES ANY C/O PAIN- CALL LIGHT AND PERSONAL BELONGINGS WITH IN REACH- HOURLY ROUNDS IN PLACE R/T SAFETY/NEEDS- ALL NEEDS MET AT THIS TIME
[2021-03-12] MEDS ORDERED: CARAFATE 1 GM TA1 G1 PO (10:53)
[2021-03-12] MEDS ORDERED: NEXIUM40 MG PO (10:53)
[2021-03-12 11:04] VITALS: BP 135/51
--- NOTE | 2021-03-12 14:17 | NUR ---
Notified via Fax of Notification of Medicare Beneficiary Appeal Request for Discharge from [facility]. List of requested medical records requested faxed to [phone]. Direct questions .
--- NOTE | 2021-03-12 15:06 | NUR ---
PLAN FOR THIS PT TO D/C TODAY TO SNF AT [facility]. PT INITIALLY NOT IN AGREEMENT WITH THIS PLAN AND INFORMS OF PLAN TO APPEAL. HOWEVER AFTER FURTHER DISUCSSION WITH FAMILY. PT HAS NOW DECIDED TO D/C TO SNF. CLINICAL UPDATE FAXED TO CHAR[facility]. SUELLEN TO CALL REPORT. CM WILL REMAIN AVAILABLE TO ASSIST AND FOLLOW NEEDED. [facility] PHONE: [phone]
== END 2021-03-12 14:13 | DRG 177 ==
LOC: M.ERS 07:14 → M.TBA-ER 09:06 → M.2W 09:06
PROVIDERS: Anesthesiology; Emergency Medicine Emergency Medical Services; Family Medicine; Internal Medicine; Nurse Practitioner Adult Health; Registered Nurse; ADMIT Internal Medicine; ATTEND Internal Medicine
PROC: 0DBN8ZX Excision of Sigmoid Colon, Via Natural or Artificial Opening Endoscopic, Diagnostic (ICD-10-PCS; 2021-03-06)
PROC: 0DB68ZX Excision of Stomach, Via Natural or Artificial Opening Endoscopic, Diagnostic (ICD-10-PCS; 2021-03-06)
PROC: 0DBM8ZX Excision of Descending Colon, Via Natural or Artificial Opening Endoscopic, Diagnostic (ICD-10-PCS; 2021-03-06)
PROC: 30233N1 Transfusion of Nonautologous Red Blood Cells into Peripheral Vein, Percutaneous Approach (ICD-10-PCS; 2021-03-08)
PROC: 02HV33Z Insertion of Infusion Device into Superior Vena Cava, Percutaneous Approach (ICD-10-PCS; principal; 2021-03-09)
PROC: B5181ZA Fluoroscopy of Superior Vena Cava using Low Osmolar Contrast, Guidance (ICD-10-PCS; principal; 2021-03-09)
DX: J15.6 Pneumonia due to other Gram-negative bacteria (principal); J96.21 Acute and chronic respiratory failure with hypoxia; K25.4 Chronic or unspecified gastric ulcer with hemorrhage; N17.0 Acute kidney failure with tubular necrosis; J44.1 Chronic obstructive pulmonary disease with (acute) exacerbation; J44.0 Chronic obstructive pulmonary disease with (acute) lower respiratory infection; I48.20 Chronic atrial fibrillation, unspecified; K55.9 Vascular disorder of intestine, unspecified; K55.8 Other vascular disorders of intestine; K31.9 Disease of stomach and duodenum, unspecified; E78.5 Hyperlipidemia, unspecified; Z20.822 Contact with and (suspected) exposure to COVID-19; K64.8 Other hemorrhoids; K44.9 Diaphragmatic hernia without obstruction or gangrene; D64.9 Anemia, unspecified; Z90.710 Acquired absence of both cervix and uterus; I12.9 Hypertensive chronic kidney disease with stage 1 through stage 4 chronic kidney disease, or unspecified chronic kidney disease; N18.30 Chronic kidney disease, stage 3 unspecified; F17.210 Nicotine dependence, cigarettes, uncomplicated; Z88.0 Allergy status to penicillin; Z79.899 Other long term (current) drug therapy; Z79.01 Long term (current) use of anticoagulants

== ENCOUNTER 2021-05-07 14:50 | Inpatient (IN) | payer MEDICARE, BC ==
[~2021-05-07] VITALS: Ht 160 cm; Wt 94.3 kg
[~2021-05-07 14:50] MED LIST changes: +CARAFATE 1 GM TA1 G1 PO; +MIRAPEX0.125 MG PO; +NEXIUM40 MG PO; +NORVASC 2.5 MG2.5 M1 PO; +XARELTO20 MG PO
[2021-05-07 14:53] VITALS: BP 149/81
[2021-05-07] MEDS ORDERED: NICOTINE PATCH1 EAC3 (15:02)
[2021-05-07 15:14] LABS: ABSOLUTE EOSINOPHILS 0.1 thou/uL (0.0-0.7); ABSOLUTE LYMPHOCYTES 1.4 thou/uL (0.8-5.3); ABSOLUTE MONOCYTES 0.8 thou/uL (0.0-1.2); ABSOLUTE NEUTROPHILS 5.6 thou/uL (1.6-8.1); BASOPHILS 0.6 %; EOSINOPHILS 1.2 %; HEMATOCRIT 30.6 % (37.0-47.0); HEMOGLOBIN 9.6 gm/dL (12.0-15.0); LYMPHOCYTES 17.4 %; MCHC 31.4 g/dL (28.0-37.0); MCV 82.9 fL (80.0-100.0); MONOCYTES 10.4 %; MPV 7.7 fl. (7.2-11.1); NUCLEATED RBCS 0 /100WBC; PLATELET COUNT* 319 thou/uL (150-400); POLYS 70.4 %; RBC 3.69 mil/uL (4.20-5.00); RDW-CV 18.8 % (10.5-14.5); WBC 7.9 thou/uL (4.0-11.0)
[2021-05-07 15:25] LABS: CALCIUM 9.2 mg/dL (8.5-10.1); POTASSIUM 3.8 mmol/L (3.5-5.1)
[2021-05-07 15:34] LABS: BE 6.5 mmol/L (-2 to +3); PO2 79.5 mmHg (75.0-100.0)
[2021-05-07 15:36] LABS: ALBUMIN 3.1 g/dL (3.4-5.0); TOTAL BILIRUBIN 0.4 mg/dL (<0.1-1.0); TOTAL PROTEIN 6.9 g/dL (6.4-8.2)
[2021-05-07 15:45] LABS: PCO2 50.5 mmHg (35.0-45.0)
--- NOTE | 2021-05-07 16:09 | EKG ---
[place] [address] ELECTROCARDIOGRAM REPORT Name: MAGGYHARIKA Akers Room: [facility]#: [id number] Admission: 05/07/21 Attend Phys: Discharge: Date of : 43 Date of Service: 05/07/21 1500 Report #: [id number] THIS REPORT FOR: //name// [facility] ED Test Date: 2021-05-07 Test Time: 15:00:38 Pat Name: HARIKA WINTER Department: Room: Gender: Progress Man: [facility] : 1945 Requested By: Sulaiman Ross Order Number: [id number] MD: Adair Doyle Measurements Intervals [place] Rate: 87 P: [place]: QRS: 62 QRSD: 137 T: -48 QT: 375 QTc: 451 Interpretive Statements Atrial fibrillation Right bundle branch block Compared to ECG 02/28/2021 07:20:57 No significant changes Electronically Signed On 05-07-2021 16:09:25 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 05/07/21 1609 1500 1500 Adair Doyle MD, FACC /EPI
[2021-05-07 17:21] LABS: URINE BILIRUBIN NEGATIVE (Negative); URINE BLOOD NEGATIVE (Negative); URINE CLARITY CLEAR; URINE COLOR YELLOW; URINE GLUCOSE-RANDOM NEGATIVE (Negative); URINE KETONES NEGATIVE (Negative); URINE LEUKOCYTES-REFLEX NEGATIVE (Negative); URINE NITRITE-REFLEX NEGATIVE (Negative); URINE PROTEIN NEGATIVE (Negative); URINE UROBILINOGEN 0.2 E.U./dl (0.2-1.0)
[2021-05-07] MEDS ORDERED: NORVASC 2.5 MG2.5 M1 PO (18:27)
[2021-05-07] MEDS ORDERED: DIGITEK250 MC2 PO (18:29)
[2021-05-07] MEDS ORDERED: DOXYCYCLINE 10100 M2 PO (18:30)
[2021-05-07 20:30] VITALS: BP 174/85
[2021-05-07 20:34] VITALS: BP 106/83
[2021-05-07] MEDS ORDERED: PERPHEN-AMITRI1 EACH (21:05)
[2021-05-08 00:43] VITALS: BP 132/46
[2021-05-08 05:23] VITALS: BP 109/61
[2021-05-08 08:04] VITALS: BP 141/58
[2021-05-08 11:39] VITALS: BP 116/65
[2021-05-08 12:26] LABS: CALCIUM 9.5 mg/dL (8.5-10.1); POTASSIUM 3.3 mmol/L (3.5-5.1)
[2021-05-08 16:00] VITALS: BP 129/48
[2021-05-08 19:27] LABS: CREATININE 1.1 mg/dL (0.6-1.3); MAGNESIUM 2.2 mg/dL (1.8-2.4); POTASSIUM 4.2 mmol/L (3.5-5.1)
[2021-05-08 19:30] LABS: APTT 38.2 Seconds (25.0-31.3); INR 1.2; PROTIME 12.4 Seconds (9.20-11.50)
[2021-05-08 20:00] VITALS: BP 131/66
[2021-05-09] VITALS (7 sets, daily range): BP systolic 122–153; BP diastolic 45–87
[2021-05-09 04:22] LABS: HEMATOCRIT 31.7 % (37.0-47.0); MCH 25.8 pg (26.0-34.0); MCHC 31.6 g/dL (28.0-37.0); MCV 81.6 fL (80.0-100.0); MPV 8.1 fl. (7.2-11.1); NUCLEATED RBCS 0 /100WBC; PLATELET COUNT* 392 thou/uL (150-400); RBC 3.89 mil/uL (4.20-5.00); WBC 12.2 thou/uL (4.0-11.0)
[2021-05-09 04:51] LABS: ALBUMIN 3.1 g/dL (3.4-5.0); CALCIUM 9.3 mg/dL (8.5-10.1); MAGNESIUM 2.3 mg/dL (1.8-2.4); POTASSIUM 4.8 mmol/L (3.5-5.1); TOTAL BILIRUBIN 0.3 mg/dL (<0.1-1.0); TOTAL PROTEIN 6.6 g/dL (6.4-8.2)
[2021-05-09 06:25] LABS: ABSOLUTE LYMPHOCYTES 0.5 thou/uL (0.8-5.3); ABSOLUTE MONOCYTES 0.5 thou/uL (0.0-1.2); ABSOLUTE NEUTROPHILS 11.2 thou/uL (1.6-8.1)
[2021-05-09 06:26] LABS: PLATELET ESTIMATE ADEQUATE
[2021-05-10 01:39] VITALS: BP 113/46
[2021-05-10 05:46] VITALS: BP 181/72
[2021-05-10 09:07] VITALS: BP 136/52
--- NOTE | 2021-05-10 11:31 | CON ---
[address] [address] CONSULTATION Name: HARIKA WINTER Room: [address] IN M.R.#: [id number] Admission: 05/07/21 Attend Phys: Clary Harmon Discharge: Date of : 43 Report #: [id number] THIS REPORT FOR: cc: Baldev Doshi MD, Anthony MD Pervez,Bryn RUSH ~ DATE OF CONSULTATION: 05/08/2021 CONSULTED HAS BEEN REQUESTED BY: Dr. Lam. INDICATION FOR CONSULTATION: Shortness of breath. HISTORY OF PRESENT ILLNESS: A 75-year-old female. She has been vaccinated for COVID-19. She has COPD. She is on 3 liters oxygen continuous and has an extensive history of smoking in the past, recently had a prolonged admission to this hospital when she was short of breath and also was noted to have ischemic colitis on colonoscopy. 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 The patient has now again presented with shortness of breath present for several days; however, primarily for the last 24 hours before admission. She reports that there was significant swelling of lower extremities. She does not have calf pain, swelling of lower extremities, more on the right than the left. She also says that she has been having burning with urination. She has been coughing. There is not much sputum. She does state that there is some band-like chest tightness. She does not report a runny nose or sore throat. Has not been febrile. REVIEW OF SYSTEMS: Answers to the negative for 12 questions for review of systems, except as mentioned above. PAST MEDICAL HISTORY: COPD, on oxygen 3 liters continuous, obstructive sleep apnea on a CPAP at home, atrial fibrillation, on Xarelto. Last echo shows a normal left ventricular ejection fraction and right heart pressure 35-40, hypertension, hyperlipidemia, glaucoma, ischemic colitis, status post hysterectomy, hyperlipidemia. SOCIAL HISTORY: Extensive history of smoking. She says she has not smoked for the last couple of weeks. No known history of heavy alcohol use or illegal drug use. CURRENT MEDICATIONS: List in Docbook[facility] reviewed. HOME MEDICATIONS: List in [facility]book[facility] also reviewed. ALLERGIES: SHE IS REPORTED TO BE ALLERGIC TO PENICILLIN, [place] [address] CONSULTATION Name: HARIKA WINTER Room: [address]#: [id number] Admission: 05/07/21 Attend Phys: Clary Harmon Discharge: Date of : 43 Report #: [id number] CEPHALOSPORINS WITHOUT PROBLEMS. FAMILY HISTORY: No pertinent family history. PHYSICAL EXAMINATION: GENERAL: She is alert, awake and oriented, did not appear to be in any distress. VITAL SIGNS: She has a pulse of 77 and a blood pressure of 116/65, saturating 98% on 5 liters nasal cannula, respiratory rate 18, temperature of 37.1. HEENT: Head is normocephalic and atraumatic. Pupils are equal and reactive. There is no throat erythema. NECK: Does not show raised JVP, asymmetry, mass or lymph nodes. CHEST: Symmetrical expansion on inspection and palpation. On auscultation, breath sounds are bilaterally equal, but decreased. I do not hear any added sounds. HEART: Irregular. There is no murmur. ABDOMEN: Soft and nontender. EXTREMITIES: Lower extremities show 2+ edema is more on the right than the left. There is no calf tenderness. SKIN: Dry and intact. NEUROLOGIC: Moves all extremities bilaterally equally and spontaneously with no focal deficit identified. LABORATORY DATA: The patient's chest x-ray was performed yesterday. I repeated a chest x-ray now. There is significant improvement in pulmonary vascular congestion compared with a chest x-ray performed yesterday. She does have left basilar as well as right middle lobe infiltrates as well. Lab work is in Docbook[facility] and this is reviewed. ASSESSMENT AND PLAN: 1. Acute on chronic hypoxemic respiratory failure. There is a significant improvement in the patient's chest x-ray compared with yesterday. The patient also says swelling of lower extremities and shortness of breath is better, this is consistent with improvement in fluid overload/congestive heart failure. She also does appear to have a COPD exacerbation and pulmonary infiltrates. The primary etiology of her shortness of breath appears to be fluid overload. 2. Fluid overload, may consider repeating an echo. Cardiology service is on the case, I would therefore defer to them. She did receive 2 doses of Lasix with a favorable response overnight. I did give her some potassium and Aldactone this morning. Repeat labs this evening are pending, I plan to review these and then we will consider ordering more diuresis. Note, the patient's blood pressure is now on the lower side at 116/65, we will watch blood pressure trend, if it remains on the lower side, then I would recommend holding Norvasc, so that diuresis is possible. [address] [address] CONSULTATION Name: HARIKA WINTER Room: [address] IN ..#: [id number] Admission: 05/07/21 Attend Phys: Clary Harmon Discharge: Date of : 43 Report #: [id number] 3. Chronic obstructive pulmonary disease exacerbation. I agree with Solu-Medrol as well as nebulized bronchodilators as currently ordered. 4. Pulmonary infiltrates. There is already a favorable response since last night. She is already on cefepime. I therefore did not make any change at this time. Recommend obtaining a nasal swab for methicillin-resistant Staphylococcus aureus as well as a sputum culture. Other cultures and serologies are also ordered. 5. Asymmetrical edema/evaluation for thromboembolic phenomena. She is more edema on the right than the left. She states that she takes her Xarelto regularly. If this is in fact the case, then it would be unlikely that she will have another thromboembolic event. Regardless, I did order a D-dimer for this evening, if it is elevated, then I will obtain venous Dopplers. Recommend continue with anticoagulation. 6. Obstructive sleep apnea. She does report using a CPAP at home, if her home CPAP is here then we use her own. Otherwise, we will put her on one of our BiPAP. 7. Gastrointestinal prophylaxis. We will order Protonix. 8. Clostridium difficile prophylaxis, Lactinex. 9. History of atrial fibrillation, on anticoagulation as above. Thanks for this consultation. <ELECTRONICALLY SIGNED> By: Bryn Garibay MD 05/10/21 1131 1529 1932Aoniel Garibay MD /nt
[2021-05-10 12:00] VITALS: BP 146/62
[2021-05-10 16:00] VITALS: BP 124/49
[2021-05-10 20:00] VITALS: BP 142/62
[2021-05-11] VITALS (7 sets, daily range): BP systolic 110–149; BP diastolic 67–76
[2021-05-12] VITALS: BP 142/62
[2021-05-12 04:00] VITALS: BP 150/65
[2021-05-12 08:00] VITALS: BP 153/67
[2021-05-12 08:13] LABS: HEMATOCRIT 40.6 % (37.0-47.0); HEMOGLOBIN 12.5 gm/dL (12.0-15.0); MCH 25.3 pg (26.0-34.0); MCHC 30.9 g/dL (28.0-37.0); MCV 81.8 fL (80.0-100.0); MPV 8.1 fl. (7.2-11.1); RBC 4.96 mil/uL (4.20-5.00); RDW-CV 19.7 % (10.5-14.5); WBC 15.3 thou/uL (4.0-11.0)
[2021-05-12 08:18] VITALS: BP 153/67
[2021-05-12 08:27] LABS: CALCIUM 9.3 mg/dL (8.5-10.1); CREATININE 1.2 mg/dL (0.6-1.3); POTASSIUM 3.1 mmol/L (3.5-5.1)
[2021-05-12] MEDS ORDERED: LOPRESSOR50 MG PO (10:39)
[2021-05-12] MEDS ORDERED: PREDNISONE 10 M10 MG PO (10:39)
[2021-05-12] MEDS ORDERED: CEFDINIR300 MG PO (10:39)
== END 2021-05-12 15:20 | disposition home health service (06) | DRG 193 ==
LOC: M.ERS 14:50 → M.TBA-ER 16:17 → M.2W 16:17
PROVIDERS: Emergency Medicine; Internal Medicine Critical Care Medicine; Registered Nurse; ADMIT Internal Medicine; ATTEND Internal Medicine
DX: J18.9 Pneumonia, unspecified organism (principal); J96.21 Acute and chronic respiratory failure with hypoxia; I50.33 Acute on chronic diastolic (congestive) heart failure; J44.1 Chronic obstructive pulmonary disease with (acute) exacerbation; I48.20 Chronic atrial fibrillation, unspecified; E66.2 Morbid (severe) obesity with alveolar hypoventilation; J44.0 Chronic obstructive pulmonary disease with (acute) lower respiratory infection; I11.0 Hypertensive heart disease with heart failure; E78.5 Hyperlipidemia, unspecified; G25.81 Restless legs syndrome; I45.10 Unspecified right bundle-branch block; I27.20 Pulmonary hypertension, unspecified; Z20.822 Contact with and (suspected) exposure to COVID-19; F41.0 Panic disorder [episodic paroxysmal anxiety]; D64.9 Anemia, unspecified; I25.10 Atherosclerotic heart disease of native coronary artery without angina pectoris; Z90.710 Acquired absence of both cervix and uterus; Z88.0 Allergy status to penicillin; Z87.891 Personal history of nicotine dependence; Z68.36 Body mass index [BMI] 36.0-36.9, adult

== ENCOUNTER → 2021-07-05 | Outpatient (CLI) | payer MEDICARE, BC ==
[~2021-07-05] MED LIST changes: +CEFDINIR300 MG PO; +DIGITEK250 MC2 PO; +DOXYCYCLINE 10100 M2 PO; +LOPRESSOR50 MG PO; +NICOTINE PATCH1 EAC3; +PERPHEN-AMITRI1 EACH
[2021-07-05 16:09] LABS: CALCIUM 9.4 mg/dL (8.5-10.1); CREATININE 1.3 mg/dL (0.6-1.3)
[2021-07-05 16:13] LABS: ALBUMIN 3.3 g/dL (3.4-5.0); MAGNESIUM 2.1 mg/dL (1.8-2.4); TOTAL BILIRUBIN 0.4 mg/dL (<0.1-1.0); TOTAL PROTEIN 7.3 g/dL (6.4-8.2)
== END ==
LOC: M.LAB 15:16
PROVIDERS: ATTEND Internal Medicine Critical Care Medicine
DX: R25.2 Cramp and spasm (principal)

== ENCOUNTER 2021-07-24 11:22 | Inpatient (IN) | payer MEDICARE, BC ==
[~2021-07-24] VITALS: Ht 160 cm; Wt 92.3 kg
[2021-07-24 11:25] VITALS: BP 152/62
[2021-07-24] MEDS ORDERED: FUROSEMIDE 40 M40 MG PO (11:28)
[2021-07-24 11:43] LABS: ABSOLUTE BASOPHILS 0.1 thou/uL (0.0-0.2); ABSOLUTE EOSINOPHILS 0.1 thou/uL (0.0-0.7); ABSOLUTE LYMPHOCYTES 1.4 thou/uL (0.8-5.3); ABSOLUTE NEUTROPHILS 9.5 thou/uL (1.6-8.1); BASOPHILS 0.4 %; EOSINOPHILS 0.9 %; HEMOGLOBIN 10.9 gm/dL (12.0-15.0); LYMPHOCYTES 11.6 %; MCH 25.1 pg (26.0-34.0); MCHC 31.1 g/dL (28.0-37.0); MCV 80.7 fL (80.0-100.0); MONOCYTES 8.1 %; MPV 7.9 fl. (7.2-11.1); NUCLEATED RBCS 0 /100WBC; PLATELET COUNT* 341 thou/uL (150-400); RBC 4.34 mil/uL (4.20-5.00); RDW-CV 18.7 % (10.5-14.5)
[2021-07-24 11:56] LABS: CALCIUM 8.8 mg/dL (8.5-10.1); CREATININE 1.3 mg/dL (0.6-1.3); POTASSIUM 3.5 mmol/L (3.5-5.1)
[2021-07-24 12:01] LABS: ALBUMIN 3.1 g/dL (3.4-5.0); TOTAL BILIRUBIN 0.5 mg/dL (<0.1-1.0); TOTAL PROTEIN 7.2 g/dL (6.4-8.2)
[2021-07-24 13:29] LABS: URINE BILIRUBIN NEGATIVE (Negative); URINE BLOOD NEGATIVE (Negative); URINE CLARITY CLEAR; URINE COLOR YELLOW; URINE GLUCOSE-RANDOM NEGATIVE (Negative); URINE KETONES NEGATIVE (Negative); URINE LEUKOCYTES-REFLEX NEGATIVE (Negative); URINE NITRITE-REFLEX NEGATIVE (Negative); URINE PROTEIN NEGATIVE (Negative); URINE SPECIFIC GRAVITY <= 1.005 (1.005-1.030)
--- NOTE | 2021-07-24 15:48 | 2DMMODE ---
[place] [address] 2 D/M-MODE ECHOCARDIOGRAM Name: HARIKA WINTER Room: [place] [address] ADM IN [facility]#: [id number] Admission: 07/24/21 Attend Phys: Mark Aguilera Discharge: Date of : 43 Date of Service: 07/24/21 1548 Report #: [id number] THIS REPORT FOR: cc: Baldev Doshi MD, Anthony MD Liston, Michael J. MD [facility] ~ APPROVED REPORT Study performed: 07/24/2021 14:17:07 EXAM: Comprehensive 2D, Doppler, and color-flow Echocardiogram Patient Location: In-Patient Room #: er Status: routine BSA: 1.91 HR: 70 bpm BP: 152/62 mmHg Rhythm: Atrial Fibrillation Other Information Study Quality: Good Indications Atrial Fibrillation Syncope 2D Dimensions IVSd: 10.98 (7-11mm) LVOT Diam: 18.50 (18-24mm) LVDd: 46.11 mm PWd: 10.06 (7-11mm) Ascending Ao: 28.53 (22-36mm) LVDs: 27.53 (25-40mm) Aortic Root: 31.01 mm Volumes Left Atrial Volume (Systole) LA ESV Index: 28.00 mL/m2 Aortic Valve AoV Peak Salvador.: 1.63 m/s AO Peak Gr.: 10.65 mmHg LVOT Max P.90 mmHg AO Mean Gr.: 5.43 mmHg LVOT Mean P.69 mmHg LVOT Max V: 1.21 m/s AO V2 VTI: 33.65 cm LVOT Mean V: 0.75 m/s MURTAZA (VTI): 2.10 cm2 LVOT V1 VTI: 26.34 [place] [address] 2 D/M-MODE ECHOCARDIOGRAM Name: HARIKA WINTER Room: [address] IN ..#: [id number] Admission: 07/24/21 Attend Phys: Mark Aguilera Discharge: Date of : 43 Date of Service: 07/24/21 1548 Report #: [id number] TDI Lateral E' Salvador.: 0.14 m/s Pulmonary Valve PV Peak Salvador.: 1.19 m/s PV Peak Gr.: 5.68 mmHg Tricuspid Valve RAP Estimate: 5.00 mmHg TR Peak Gr.: 23.90 mmHg RVSP: 28.00 mmHg PA Pressure: 28.00 mmHg Left Ventricle The left ventricle is normal size. There is normal LV segmental wall motion. There is normal left ventricular wall thickness. Left ventricular systolic function is normal. LVEF is 65-70%. This study is not technically sufficient to allow evaluation of the LV diastolic function due to atrial fibrillation. Right Ventricle The right ventricle is normal size. The right ventricular systolic function is normal. Atria Left atrium is mildly dilated. The right atrium size is normal. Aortic Valve The aortic valve is normal in structure. Trace aortic regurgitation. There is no aortic valvular stenosis. Mitral Valve The mitral valve is normal in structure. Trace mitral regurgitation. No evidence of mitral valve stenosis. Tricuspid Valve The tricuspid valve is normal in structure. Trace tricuspid regurgitation. The RVSP is 30-35 mmHg. Pulmonic Valve The pulmonary valve is normal in structure. There is no pulmonic valvular regurgitation. Great Vessels The aortic root is normal in size. IVC is normal in size and collapses >50% [place] [address] 2 D/M-MODE ECHOCARDIOGRAM Name: HARIKA WINTER Room: [address] IN [facility].#: [id number] Admission: 07/24/21 Attend Phys: Mark Augilera Discharge: Date of : 43 Date of Service: 07/24/21 1548 Report #: [id number] Pericardium There is no pericardial effusion. <Conclusion> The left ventricle is normal size. There is normal left ventricular wall thickness. Left ventricular systolic function is normal. LVEF is 65-70%. Left atrium is mildly dilated. Trace aortic regurgitation. Trace mitral regurgitation. Trace tricuspid regurgitation. The RVSP is 30-35 mmHg. IVC is normal in size and collapses >50% with inspiration. <ELECTRONICALLY SIGNED> By: Luis Watt MD, FACC 07/24/21 1548 1548 1548 Luis Watt MD, FACC /INF
--- NOTE | 2021-07-24 15:51 | EKG ---
[place] [address] ELECTROCARDIOGRAM REPORT Name: HARIKA WINTER Room: [place] [address] ADM IN [facility].#: [id number] Admission: 07/24/21 Attend Phys: Mark Aguilera Discharge: Date of : 43 Date of Service: 07/24/21 1132 Report #: [id number] THIS REPORT FOR: //name// [facility] ED Test Date: 2021-07-24 Test Time: 11:32:50 Pat Name: HARIKA WINTER Department: Room: 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
[2021-07-24 16:30] VITALS: BP 153/98
[2021-07-24 16:35] VITALS: BP 151/42
[2021-07-24 16:54] VITALS: BP 151/42
[2021-07-24] MEDS ORDERED: ZAROXOLYN 5MG TA5 MG PO (17:03)
[2021-07-24] MEDS ORDERED: TRAMADOL 50 MG50 MG PO (17:04)
[2021-07-24] MEDS ORDERED: XANAX1 MG PO (17:04)
[2021-07-24] MEDS ORDERED: SYMBICORT160 MCG/4. INH (17:05)
[2021-07-24] MEDS ORDERED: ALBUTEROL2.5 MG/31 INH (17:06)
[2021-07-25 00:51] VITALS: BP 164/69
[2021-07-25 04:10] VITALS: BP 137/59
[2021-07-25 07:50] VITALS: BP 112/51
[2021-07-25 11:45] VITALS: BP 102/72; BP 105/63; BP 113/62
[2021-07-25 12:31] LABS: CALCIUM 8.6 mg/dL (8.5-10.1); CREATININE 1.5 mg/dL (0.6-1.3); POTASSIUM 3.7 mmol/L (3.5-5.1)
[2021-07-25 16:00] VITALS: BP 134/47
[2021-07-25 20:00] VITALS: BP 154/51
[2021-07-26] VITALS: BP 118/54
[2021-07-26 04:00] VITALS: BP 113/50
[2021-07-26 09:00] VITALS: BP 106/42
[2021-07-26 11:52] LABS: ABSOLUTE EOSINOPHILS 0.1 thou/uL (0.0-0.7); ABSOLUTE LYMPHOCYTES 1.2 thou/uL (0.8-5.3); ABSOLUTE MONOCYTES 0.9 thou/uL (0.0-1.2); ABSOLUTE NEUTROPHILS 7.9 thou/uL (1.6-8.1); BASOPHILS 0.4 %; EOSINOPHILS 1.3 %; HEMATOCRIT 29.9 % (37.0-47.0); HEMOGLOBIN 9.5 gm/dL (12.0-15.0); LYMPHOCYTES 12.3 %; MCH 25.3 pg (26.0-34.0); MCHC 31.7 g/dL (28.0-37.0); MCV 79.8 fL (80.0-100.0); MONOCYTES 8.4 %; MPV 7.5 fl. (7.2-11.1); NUCLEATED RBCS 0 /100WBC; PLATELET COUNT* 314 thou/uL (150-400); POLYS 77.6 %; RBC 3.75 mil/uL (4.20-5.00); RDW-CV 18.6 % (10.5-14.5); WBC 10.2 thou/uL (4.0-11.0)
[2021-07-26 11:54] VITALS: BP 118/55
[2021-07-26 12:12] LABS: ALBUMIN 2.7 g/dL (3.4-5.0); CALCIUM 8.3 mg/dL (8.5-10.1); CREATININE 1.4 mg/dL (0.6-1.3); MAGNESIUM 2.3 mg/dL (1.8-2.4); PHOSPHORUS* 2.3 mg/dL (2.5-4.9); POTASSIUM 3.7 mmol/L (3.5-5.1); TOTAL BILIRUBIN 0.4 mg/dL (<0.1-1.0); TOTAL PROTEIN 6.4 g/dL (6.4-8.2)
[2021-07-26 15:39] VITALS: BP 138/76
[2021-07-26 19:43] VITALS: BP 130/54
[2021-07-27] VITALS: BP 137/51
[2021-07-27 04:00] VITALS: BP 120/68
[2021-07-27] MEDS ORDERED: LOPRESSOR50 MG PO (08:47)
[2021-07-27] MEDS ORDERED: CLONAZEPAM 0.50.5 M1 PO (08:47)
[2021-07-27] MEDS ORDERED: BUMETANIDE 1 MG1 M1 PO (08:47)
[2021-07-27 09:00] VITALS: BP 165/76
[2021-07-27] MEDS ORDERED: REQUIP 1 MG TABL1 M1 PO (09:20)
[2021-07-27] MEDS ORDERED: FLEXERIL PO (09:20)
[2021-07-27 14:22] VITALS: BP 129/54
== END 2021-07-27 14:20 | DRG 312 ==
LOC: M.ERS 11:22 → M.TBA-ER 12:58 → M.2W 12:58
PROVIDERS: Family Medicine; Registered Nurse; ADMIT Internal Medicine; ATTEND Internal Medicine
DX: I95.1 Orthostatic hypotension (principal); N17.0 Acute kidney failure with tubular necrosis; E44.0 Moderate protein-calorie malnutrition; I50.32 Chronic diastolic (congestive) heart failure; I95.9 Hypotension, unspecified; Z68.36 Body mass index [BMI] 36.0-36.9, adult; F32.A Depression, unspecified; E78.5 Hyperlipidemia, unspecified; I48.91 Unspecified atrial fibrillation; Z79.01 Long term (current) use of anticoagulants; I10 Essential (primary) hypertension; F41.9 Anxiety disorder, unspecified; G25.81 Restless legs syndrome; D64.9 Anemia, unspecified; E66.9 Obesity, unspecified; J44.9 Chronic obstructive pulmonary disease, unspecified; I11.0 Hypertensive heart disease with heart failure; Z88.0 Allergy status to penicillin; Z88.8 Allergy status to other drugs, medicaments and biological substances; T50.2X5A Adverse effect of carbonic-anhydrase inhibitors, benzothiadiazides and other diuretics, initial encounter; Y92.89 Other specified places as the place of occurrence of the external cause; Z20.822 Contact with and (suspected) exposure to COVID-19